=== PATIENT | female | born 1995 | race African-American/Black ===

== ENCOUNTER 2024-12-24 15:06 | Emergency (ER) | payer SELFPAY ==
[~2024-12-24] VITALS: Ht 167.6 cm; Wt 60.0 kg
[2024-12-24 15:31] VITALS: TEMP 36.9; O2SAT 100
[2024-12-24 17:06] LABS: CLARITY URINE CLEAR (CLEAR); COLOR URINE YELLOW (YELLOW); GLUCOSE URINE NEGATIVE (NEGATIVE); KETONES URINE TRACE (NEGATIVE); OCCULT BLOOD URINE 1+ (NEGATIVE); PH URINE 6.0 (4.5-8.0); PROTEIN URINE NEGATIVE (NEGATIVE); SPECIFIC GRAVITY URINE 1.015 (1.005-1.030)
[2024-12-24 17:07] LABS: LEUKOCYTE ESTERASE URINE 2+ (NEGATIVE); NITRITE URINE NEGATIVE (NEGATIVE); UROBILINOGEN URINE 0.2 E.U./dL (0.2-1.0)
[2024-12-24 17:08] LABS: BACTERIA URINE 2+; SQUAMOUS EPITHELIAL CELL URINE FEW /lpf (RARE/1+)
[2024-12-24] MEDS ORDERED: NITR100C MT (19:46)
[2024-12-24] MEDS ORDERED: IBUP-1455 MT (19:47)
[2024-12-24 19:53] VITALS: BP 137/85; PULSE 87; RESP 16; O2SAT 100
[2024-12-27 04:07] LABS: CHLAMYDIA TRACHOMATIS NAA Negative (Negative); NEISSERIA GONORRHOEAE NAA Negative (Negative)
== END 2024-12-24 19:57 | disposition home or self-care (01) ==
LOC: ER 15:19
DX: S62.339A Displaced fracture of neck of unspecified metacarpal bone, initial encounter for closed fracture (principal); N39.0 Urinary tract infection, site not specified; X58.XXXA Exposure to other specified factors, initial encounter; Y93.89 Activity, other specified; Y92.89 Other specified places as the place of occurrence of the external cause; Y99.8 Other external cause status
CPT/HCPCS: 29125; 73130; 81003; 81025; 87210; 87491; 87591; 99284